=== PATIENT | male | born 1960 | race Caucasian/White ===

== ENCOUNTER 2016-08-21 06:26 | Inpatient (IN) ==
[2016-08-14 08:46] LABS: MANUAL DIFF NEEDED? NO; URINE MICRO REVIEW NEEDED? NO; URINE SOURCE VOIDED
[2016-08-14 08:51] LABS: BASO% 0.3 % (0.0-0.8); EOS% 4.3 % (0.0-10.0); HEMOGLOBIN 15.9 g/dL (14.0-18.0); IMM GRAN# 0.04 X1000 (0.0-0.04); IMM GRAN% 0.6 % (0.0-0.5); LYMPH# 2.06 X1000 (1.2-3.4); LYMPH% 29.6 % (20.5-51.1); MCH 29.7 PG (27-31); MCHC 34.6 g/dL (33-37); MCV 85.8 FL (81-99); MONO# 0.75 X1000 (0.11-0.59); MONO% 10.8 % (1.7-9.3); MPV 9.1 FL (7.4-10.4); NEUT% 54.4 % (42.2-75.2); PLT 216 X1000 (130-400); RBC 5.36 XMIL (4.7-6.1)
[2016-08-14 08:52] LABS: BILIRUBIN URINE NEGATIVE (NEGATIVE); BLOOD URINE NEGATIVE (NEGATIVE); COLOR YELLOW; GLUCOSE URINE >1000 mg/dL (NEGATIVE); LEUKOCYTES URINE NEGATIVE (NEGATIVE); NITRITE URINE NEGATIVE (NEGATIVE); PROTEIN URINE NEGATIVE (NEGATIVE); SP GRAVITY URINE 1.012; TURBIDITY URINE CLEAR (CLEAR); UROBILINOGEN URINE NORMAL (NORMAL)
[2016-08-14 08:54] LABS: UR EPITHELIAL CELLS <10 /HPF (<10); URINE BACTERIA NEGATIVE /HPF; URINE RBC <10 /HPF (<10); URINE WBC <10 /HPF (<10)
[2016-08-14 09:20] LABS: AGAP 13; BUN 17 mg/dL (8-22); CALCIUM 9.7 mg/dL (8.8-10.2); CHLORIDE 101 mmol/L (98-107); COSMO 281; POTASSIUM 4.3 mmol/L (3.5-5.1); SODIUM 140 mmol/L (136-145); TCO2 26 mmol/L (25-35)
[2016-08-14 09:21] LABS: INR 0.96; PROTIME 10.1 Seconds (9.2-11.7); PTT 26.8 Seconds (22.0-36.0)
--- NOTE | 2016-08-14 10:20 | EKG Report ---
Test Performed on : 08/14/2016 08:31:48 AM Test Reason : PAT Blood Pressure : / mmHG Vent. Rate : 064 BPM Atrial Rate : 064 BPM P-R Int : 124 ms QRS Dur : 088 ms QT Int : 388 ms P-R-T Axes : 036 048 053 degrees QTc Int : 400 ms Normal sinus rhythm. Normal ECG No previous ECGs available Confirmed by Chance Urbina MD ([id number]) on 08/18/2016 12:37:09 PM
[2016-08-21] MEDS ORDERED: LYRICA ONE (06:37)
[2016-08-21] MEDS ORDERED: LR 1,000 ML ONE (06:37)
[2016-08-21] MEDS ORDERED: REGLAN ONE (06:37)
[2016-08-21] MEDS ORDERED: CELEBREX ONE (06:37)
[2016-08-21] MEDS ORDERED: COLACE ONE (06:37)
[2016-08-21] MEDS ORDERED: PEPCID ONE (06:37)
[2016-08-21] MEDS ORDERED: KEFZOL 2 GM/D5W 2 GM/50 ML IVPB ONE (06:41)
[2016-08-21] MEDS ORDERED: ROBAXIN PO PRN (06:54)
[2016-08-21] MEDS ORDERED: VANCOMYCIN ONE (08:08)
[2016-08-21] MEDS ORDERED: TORADOL ONE (08:08)
[2016-08-21] MEDS ORDERED: MARCAINE 0.25% PF/EPI 1:200,000 ONE (08:08)
[2016-08-21] MEDS ORDERED: SODIUM CHLORIDE 0.9% ONE (08:08)
[2016-08-21] MEDS ORDERED: EXPAREL 1.3% ONE (08:08)
[2016-08-21] MEDS ORDERED: NEOSPORIN G.U. IRRIGANT ONE (08:08)
[2016-08-21] MEDS ORDERED: CYKLOKAPRON 1,000 MG/NS 1,000 MG/100 ML IVPB ONE (08:10)
[2016-08-21] MEDS ORDERED: NAROPIN 0.5% ONE (08:19)
[2016-08-21] MEDS ORDERED: VERSED ONE (08:20)
[2016-08-21] MEDS ORDERED: VYTORIN 10/40 MG PO SCH (09:00)
[2016-08-21 09:33] LABS: URINE MICRO REVIEW NEEDED? NO; URINE SOURCE CATH
[2016-08-21 09:59] LABS: BILIRUBIN URINE NEGATIVE (NEGATIVE); BLOOD URINE NEGATIVE (NEGATIVE); COLOR YELLOW; GLUCOSE URINE >1000 mg/dL (NEGATIVE); LEUKOCYTES URINE NEGATIVE (NEGATIVE); NITRITE URINE NEGATIVE (NEGATIVE); PROTEIN URINE NEGATIVE (NEGATIVE); SP GRAVITY URINE 1.029; TURBIDITY URINE CLEAR (CLEAR); UR EPITHELIAL CELLS <10 /HPF (<10); URINE BACTERIA NEGATIVE /HPF; URINE RBC <10 /HPF (<10); URINE WBC <10 /HPF (<10); UROBILINOGEN URINE NORMAL (NORMAL)
[2016-08-21] MEDS ORDERED: INVOKANA PO SCH (10:00)
[2016-08-21] MEDS ORDERED: GLUCOPHAGE PO SCH (10:00)
[2016-08-21] MEDS ORDERED: MILK OF MAGNESIA PO PRN (12:00)
[2016-08-21] MEDS ORDERED: ZOFRAN PO PRN (12:00)
[2016-08-21] MEDS ORDERED: MORPHINE IV PRN (12:00)
[2016-08-21] MEDS ORDERED: FENTANYL ONE (12:16)
[2016-08-21] MEDS ORDERED: DIPRIVAN 1% ONE (12:17)
[2016-08-21] MEDS ORDERED: NS 1,000 ML ONE (12:30)
[2016-08-21] MEDS ORDERED: DILAUDID IV PRN (13:27)
[2016-08-21] MEDS: NEXIUM PO SCH (13:32)
[2016-08-21] MEDS: CELEBREX PO SCH (13:33)
[2016-08-21] MEDS: NS 1,000 ML IV SCH ×2 (13:33→20:19)
--- NOTE | 2016-08-21 13:49 | OPERATIVE NOTE ---
PROCEDURE DATE: 08/21/2016 PREOPERATIVE DIAGNOSIS: Right glenohumeral arthritis. POSTOPERATIVE DIAGNOSIS: Right glenohumeral arthritis. PROCEDURES: Right total shoulder arthroplasty with [employer] size 12 press-fit stem, a 48 x 15 humeral head and a 44 anchor peg glenoid. SURGEON: Jairo Castillo MD. GRIEVANCE AND APPEALS COORDINATOR: PÉREZ Gabriel and Brandon Mitchell RN. ANESTHESIA: General. IV FLUIDS: 2300 mL lactated Ringer's. ESTIMATED BLOOD LOSS: 150 mL. COMPLICATIONS: None. BRIEF HISTORY: The patient is a pleasant 56-year-old male with chronic history of osteoarthritis and he says his pain has progressed to affect his activities of daily living. Recommended to proceed with right total shoulder arthroplasty was offered. Risks and benefits of surgery were explained, including the risks of anesthesia, , bleeding, infection, failure to relieve pain, postoperative stiffness, nerve injury, blood clots, and other imponderables. All questions were answered and the patient and family wished to proceed with surgery DETAILS OF OPERATION: The patient was taken to the operating room, placed in supine on the operating table. Once adequate anesthesia was obtained, he was placed in semi-Morris beach-chair position. The right shoulder was subsequently prepped and draped in usual sterile fashion. Standard deltopectoral incision was made with a skin knife. Hemostasis was obtained using electrocautery. The deltopectoral interval was then developed and the Flores retractors were placed. The clavipectoral fascia was elevated, as well. The subscapularis tendon was then identified and was released approximately 1 cm medial to its insertion site. The shoulder was then dislocated anteriorly. It was then repositioned in the joint and a modified Crego was placed superiorly. With the arm held parallel to the floor and externally rotated approximately 25 degrees, a template was placed in its proximal aspect and electrocautery was used to bonnie the site for the resection. The humeral head was then resected in standard fashion. A protective disk was then placed. Attention was turned to the glenoid. Circumferential dissection was performed with a deep knife. A 44 appeared be the correct size. The guide pin was placed in position. Reaming was then conducted. After this had been performed, the central hole was dilated and the guide pin was removed. The wound was copiously irrigated. The anchor peg guide was then placed in position and the 3 peripheral anchor peg holes were drilled. The guide was then removed. The wound was copiously irrigated with antibiotic pulsatile lavage. Vancomycin was mixed with cement on the back table. Autologous bone graft was then placed in the central PEG fenestrations. The cement was then placed in the 3 peripheral peg holes. The anchor peg glenoid was then impacted into position and had excellent fit. Axial loading was maintained while the cement cured. After cement had cured, attention was then turned to the proximal humerus. Sequential reaming was then conducted up to size 12. The punch was then placed in the proximal hole, trial stem. The broach was then impacted superiorly. It had good fit. This was then removed. Copious irrigation was then performed with antibiotic pulsatile lavage. A size 12 press-fit body was then impacted and had excellent fit. The trial humeral head size was then placed, a 48 x 15 humeral head, with excellent stability and range of motion. Trial head was removed and copious irrigation performed once again. A 48 x 15 mm humeral head was impacted on the stem. The shoulder was reduced, carried through range of motion, and had good soft tissue balancing and range of motion. The wound was copiously irrigated once again. A #2 FiberWire was used to repair the subscapularis tendon in interrupted fashion as well as the lateral aspect of the rotator cuff interval. Exparel was placed in deep soft tissue as well as subcutaneous tissue. Copious irrigation was performed once again. A 2-0 Vicryl was used to repair the subcutaneous tissue, followed by running 2-0 Prolene. Benzoin and Steri-Strips were applied. Adaptic, sterile 4x4, ABD pad, and tape were applied to the right shoulder, followed by a shoulder immobilizer. All counts were correct. The patient tolerated the procedure well and was transferred to the recovery room in stable condition. cc: Jairo Castillo MD
[2016-08-21] MEDS ORDERED: INVOKANA PO ONE (13:57)
[2016-08-21] MEDS ORDERED: GLUCOPHAGE PO ONE (13:57)
[2016-08-21] MEDS: PATIENT'S OWN MED PO SCH (14:23)
[2016-08-21] MEDS: TYLENOL PO SCH ×2 (14:23→20:18)
--- NOTE | 2016-08-21 14:32 | Diag Imaging Result Doc PS360 ---
EXAM: SHOULDER 1 VIEW RIGHT HISTORY: post op total shoulder TECHNIQUE: Portable shoulder single view COMPARISON: None. FINDINGS: The patient has undergone orthopedic replacement of the right shoulder. The humeral component is well-positioned in the humeral shaft. No fracture. A catheter overlies the outer right shoulder. IMPRESSION: Orthopedic replacement of the right shoulder. Electronically signed by Taz Bautista 08/21/2016 2:30 PM
[2016-08-21] MEDS ORDERED: CYKLOKAPRON 1,000 MG in NS 100 ML IV ONE (15:00)
[2016-08-21] MEDS ORDERED: NEOSTIGMINE ONE (15:40)
[2016-08-21] MEDS ORDERED: ZOFRAN ONE (15:40)
[2016-08-21] MEDS ORDERED: SODIUM CHLORIDE 0.9% 20 ML ONE (15:40)
[2016-08-21] MEDS ORDERED: LUBRIFRESH PM OPH OINTMENT ONE (15:40)
[2016-08-21] MEDS ORDERED: DECADRON ONE (15:41)
[2016-08-21] MEDS ORDERED: ROBINUL ONE (15:41)
[2016-08-21] MEDS ORDERED: QUELICIN (DOSE) ONE (15:41)
[2016-08-21] MEDS ORDERED: NORCURON ONE (15:41)
[2016-08-21] MEDS ORDERED: LR 2,000 ML ONE (15:41)
[2016-08-21] MEDS ORDERED: EPHEDRINE ONE (15:41)
[2016-08-21] MEDS ORDERED: XYLOCAINE-MPF 2% ONE (15:41)
[2016-08-21] MEDS ORDERED: OFIRMEV 1000 MG/ISOTONIC SOLN 1,000 MG/100 ML BOTTLE ONE (15:41)
[2016-08-21] MEDS ORDERED: KEFZOL 1 GM/D5W 1 GM/50 ML IVPB IV SCH (16:44)
[2016-08-21] MEDS: KEFZOL 2 GM/D5W 2 GM/50 ML IVPB IV SCH (17:04)
[2016-08-21] MEDS: VICTOZA SUBQ SCH (17:19)
[2016-08-21] MEDS: COLACE PO SCH (20:18)
[2016-08-21] MEDS: PERIDEX MT SCH (20:19)
[2016-08-21] MEDS ORDERED: AMBIEN PO SCH (21:00)
[2016-08-22] MEDS: KEFZOL 2 GM/D5W 2 GM/50 ML IVPB IV SCH (00:39)
[2016-08-22] MEDS: TYLENOL PO SCH ×2 (05:40→08:23)
[2016-08-22] MEDS: OXY IR PO PRN ×2 (05:40→08:37)
[2016-08-22 05:53] LABS: HEMATOCRIT 41.3 % (42.0-52.0); HEMOGLOBIN 14.1 g/dL (14.0-18.0)
[2016-08-22] MEDS: NS 1,000 ML IV SCH (06:00)
[2016-08-22 06:48] LABS: AGAP 17; BUN 13 mg/dL (8-22); CALCIUM 8.9 mg/dL (8.8-10.2); CHLORIDE 103 mmol/L (98-107); COSMO 282; POTASSIUM 4.3 mmol/L (3.5-5.1); SODIUM 141 mmol/L (136-145); TCO2 21 mmol/L (25-35)
--- NOTE | 2016-08-22 06:54 | PROGRESS NOTE ---
DATE: 08/22/2016 SUBJECTIVE: The patient is a pleasant, 56-year-old male who is 1 day status post right total shoulder arthroplasty. He is currently resting comfortably. He has no complaints. PHYSICAL EXAMINATION: On physical exam, his right extremity wound looks good. There are no signs or symptoms of infection. He has neurovascularly intact throughout. He has good process controller strength. LABORATORY DATA: His hemoglobin is 14.1, hematocrit is 41.3. IMPRESSIONS: Postoperative day #1 status post right total shoulder arthroplasty. PLAN: At this point, we will plan on discharging patient home. He will receive home physical therapy. He will follow up in the office in 12-14 days. cc: Jairo Castillo MD
[2016-08-22 07:44] VITALS: BP 126/67
[2016-08-22] MEDS: CELEBREX PO SCH (08:22)
[2016-08-22] MEDS: COLACE PO SCH (08:22)
[2016-08-22] MEDS: VICTOZA SUBQ SCH (08:23)
[2016-08-22] MEDS: NEXIUM PO SCH (08:23)
[2016-08-22] MEDS: PERIDEX MT SCH (08:29)
[2016-08-22] MEDS: PATIENT'S OWN MED PO SCH (08:38)
[2016-08-22] MEDS ORDERED: INVOKANA PO SCH (09:00)
[2016-08-22] MEDS ORDERED: ZOCOR PO SCH (09:00)
[2016-08-22] MEDS ORDERED: PEPCID PO SCH (09:00)
[2016-08-22] MEDS ORDERED: ZETIA PO SCH (09:00)
[2016-08-22] MEDS ORDERED: GLUCOPHAGE PO SCH (09:00)
== END 2016-08-22 10:24 | disposition other institution (70) ==
LOC: SURHOLD 06:26 → 4N 09:39
PROVIDERS: ADMIT Orthopaedic Surgery Adult Reconstructive Orthopaedic Surgery; ATTEND Orthopaedic Surgery Adult Reconstructive Orthopaedic Surgery